=== PATIENT | female | born 1975 | race Caucasian/White ===

== ENCOUNTER → 2018-10-03 | Outpatient (CLI) | payer OTHER | END | disposition home or self-care (01) | LOC: CARD 08:45 | PROVIDERS: ATTEND Nurse Practitioner Family | DX: R51 Headache (principal) | CPT/HCPCS: 95819 ==

== ENCOUNTER → 2019-12-21 | Outpatient (CLI) | payer OTHER | END | disposition home or self-care (01) | LOC: RAD 12:43 | PROVIDERS: ATTEND Anesthesiology | DX: Z01.89 Encounter for other specified special examinations (principal) | CPT/HCPCS: 71046; 93005 ==